=== PATIENT | female | born 1945 | race Caucasian/White ===

== ENCOUNTER 2019-09-23 06:50 | Day surgery (SDC) | payer MEDICARE, BC ==
[~2019-09-23 06:50] MED LIST: Lactated Ringers 1,000 ML IV SCH; Sodium Chloride 0.9% 10 ML Syringe FLUSH PRN
[2019-09-23] MEDS ORDERED: Midazolam 1 MG/ML 2 ML SDV IV ONE (06:51)
[2019-09-23] MEDS ORDERED: Propofol 200 MG/20 ML SDV IV ONE (06:51)
[2019-09-23] MEDS ORDERED: Lidocaine 2% 5 ML SDV INJECT ONE (06:51)
--- NOTE | 2019-09-23 08:37 | PCM.HPR ---
H & P Addendum review - H & P Addendum Review Date of Original H & P: 09/01/19 Date Reviewed: 09/23/19 Time Reviewed: 08:00 Patient was Examined: No Changes (Consents to EGD with possibel dilation)
--- NOTE | 2019-09-23 11:34 | OR ---
DATE OF OPERATION: 09/23/2019 SURGEON: Silas Mar MD PREOPERATIVE DIAGNOSIS: Gastroesophageal reflux disease with dysphagia. POSTOPERATIVE DIAGNOSIS: Distal esophageal stricture. PROCEDURE: Esophagogastroduodenoscopy with dilatation. ANESTHESIA: IV sedation. DESCRIPTION OF PROCEDURE: The patient was brought to the procedure room, where she was placed on her left side and IV sedation administered. Oral bite block was placed and the upper endoscope advanced into the esophagus under direct vision without difficulty. Vocal cords were viewed and were normal. The scope was advanced to the third portion of the duodenum. The duodenum and pylorus were normal. Antrum and body of the stomach were normal. Retroflexion revealed a normal-appearing fundus. A stricture at the EG junction was visible from above and below, which was just slightly larger diameter than the scope. The balloon was used to dilate this to 16 mm and blood was visible. Balloon was dilated. It appeared the stricture was broken in 3 places. Oozing stopped spontaneously. Air was removed from the stomach and the scope withdrawn through the esophagus, which all appeared normal. No biopsies were taken. The patient tolerated the procedure well and returned to Recovery in stable condition. I will have her remain on her antacid medication chronically. /[id number] TAMIA/ALLY
== END 2019-09-23 09:45 | disposition home or self-care (01) ==
LOC: FB.SDS 06:50
PROVIDERS: ATTEND Surgery
DX: K22.2 Esophageal obstruction (principal); K21.9 Gastro-esophageal reflux disease without esophagitis; I10 Essential (primary) hypertension; E11.9 Type 2 diabetes mellitus without complications; E78.2 Mixed hyperlipidemia; I20.8 Other forms of angina pectoris; I35.1 Nonrheumatic aortic (valve) insufficiency; M17.12 Unilateral primary osteoarthritis, left knee; N39.46 Mixed incontinence; Z79.84 Long term (current) use of oral hypoglycemic drugs; Z79.899 Other long term (current) drug therapy; Z79.82 Long term (current) use of aspirin
CPT/HCPCS: 00731; 43249; J2001; J2250; J2704; J7120; 82962